=== PATIENT | female | born 1970 | race Two or more races ===

== ENCOUNTER 2020-03-31 17:04 | Emergency (ER) | payer BC, OTHER ==
[~2020-03-31] VITALS: Ht 152.4 cm; Wt 61.2 kg
--- NOTE | 2020-03-31 17:26 | NUR ---
Patient discharged to home in stable condition. Written and verbal after care instructions given. Patient verbalizes understanding of instructions. Stressed follow up or return to ER for worsening s/s.
== END 2020-03-31 17:27 | disposition home or self-care (01) ==
LOC: ER 17:07
DX: S62.521A Displaced fracture of distal phalanx of right thumb, initial encounter for closed fracture (principal); W22.8XXA Striking against or struck by other objects, initial encounter; Y93.89 Activity, other specified; Y92.019 Unspecified place in single-family (private) house as the place of occurrence of the external cause
CPT/HCPCS: 73130; A4663

== ENCOUNTER 2021-01-02 17:38 | Emergency (ER) | payer BC, OTHER ==
[~2021-01-02] VITALS: Ht 152.4 cm; Wt 68.0 kg
[2021-01-02 18:35] VITALS: BP 119/75
--- NOTE | 2021-01-02 18:35 | NUR ---
Patient discharged to home in stable condition. Written and verbal after care instructions given. Patient verbalizes understanding of instructions. Stressed follow up or return to ER for worsening s/s. Pt walks with steady gait.
== END 2021-01-02 18:37 | disposition home or self-care (01) ==
LOC: ER 17:38
DX: M25.562 Pain in left knee (principal); M17.12 Unilateral primary osteoarthritis, left knee; M71.22 Synovial cyst of popliteal space [Baker], left knee; M25.462 Effusion, left knee
CPT/HCPCS: 73700; A4663

== ENCOUNTER 2021-03-03 18:31 | Emergency (ER) | payer BC, OTHER ==
[~2021-03-03] VITALS: Ht 152.4 cm; Wt 65.8 kg
--- NOTE | 2021-03-03 19:28 | NUR ---
XRAY AT BEDSIDE.
--- NOTE | 2021-03-03 19:52 | NUR ---
Patient discharged to home in stable condition. A/O x4, no changes in LOC. Denies any pain/discomfort upon discharge. Written and verbal after care instructions given. Patient verbalizes understanding of instructions. Stressed follow up or return to ER for worsening s/s. Steady gait.
[2021-03-03 19:54] VITALS: BP 129/80
== END 2021-03-03 19:50 | disposition home or self-care (01) ==
LOC: ER 18:32
DX: S90.31XA Contusion of right foot, initial encounter (principal); S90.121A Contusion of right lesser toe(s) without damage to nail, initial encounter; W20.8XXA Other cause of strike by thrown, projected or falling object, initial encounter; Y92.89 Other specified places as the place of occurrence of the external cause
CPT/HCPCS: 73630; A4663

== ENCOUNTER 2021-09-11 08:05 | Outpatient (CLI) | payer BC, OTHER ==
[2021-09-11 08:42] LABS: HEMATOCRIT 39.1 % (31.2-41.9); MEAN CORPUSCULAR HEMOGLOBIN 31.1 uug (24.7-32.8); MEAN CORPUSCULAR VOLUME 90.7 fL (75.5-95.3); PLATELET COUNT (AUTO) 242 K/uL (179-408)
[2021-09-11 08:54] LABS: *BILIRUBIN,URIN NEGATIVE (NEGATIVE); *BLOOD, URINE NEGATIVE (NEGATIVE); *CLARITY,URINE CLEAR (CLEAR); *COLOR,URINE LIGHT YELLOW (YELLOW); *KETONES,URINE NEGATIVE (NEGATIVE); *UROBILINOGEN,URINE 0.2 E.U./dl (NORMAL); LEUKOCYTE ESTERASE ,URINE NEGATIVE (NEGATIVE); NITRITE, URINE NEGATIVE (NEGATIVE); UGLUCOSE NEGATIVE (NEGATIVE)
[2021-09-11 09:13] LABS: IRON, SERUM 65 ug/dL (50-175)
[2021-09-11 09:38] LABS: ALANINE AMINOTRANSFERASE 35 U/L (14-59); ALKALINE PHOSPHATASE 89 U/L (50-136); ASPARTATE AMINOTRANSFERASE 22 U/L (15-37); BILIRUBIN,TOTAL 0.3 mg/dL (0.2-1.0); CARBON DIOXIDE 29 mmol/L (21-32); CHLORIDE 103 mmol/L (98-107); CHOLESTEROL 223 mg/dL (<200); CREATININE 0.7 mg/dL (0.6-1.3); GLUCOSE 91 mg/dL (74-106); HDL CHOLESTEROL 82 mg/dL (40-60); POTASSIUM 3.7 mmol/L (3.5-5.1); TOTAL PROTEIN, SERUM 8.6 g/dL (6.4-8.2); TRIGLYCERIDES 51 MG/DL (30-150); UREA NITROGEN, BLOOD 14 mg/dL (7-18); URIC ACID 4.7 mg/dL (2.6-6.0)
[2021-09-12 05:07] LABS: *TESTOSTERONE, SERUM 19 ng/dL (4-50); ESTRADIOL <5.0 pg/mL (.); FOLLICLE STIMULATION HORMONE 86.9 mIU/mL (.); LUTEINIZING HORMONE 46.9 mIU/mL (.); PROLACTIN 16.5 ng/mL (4.8-23.3)
[2021-09-14 09:06] LABS: *SJOGREN'S ANTI-SS-A <0.2 AI (0.0-0.9); *SJOGREN'S ANTI-SS-B <0.2 AI (0.0-0.9); *SMITH ANTIBODIES <0.2 AI (0.0-0.9); ANTI-DNA(DS) AB, QN <1 IU/mL (0-9)
== END 2021-09-11 23:59 | disposition home or self-care (01) ==
LOC: LAB 08:05
PROVIDERS: ATTEND Legal Medicine
DX: E11.22 Type 2 diabetes mellitus with diabetic chronic kidney disease (principal); N18.9 Chronic kidney disease, unspecified; E78.5 Hyperlipidemia, unspecified; E03.9 Hypothyroidism, unspecified; D64.9 Anemia, unspecified; E55.9 Vitamin D deficiency, unspecified; R53.1 Weakness; Z00.00 Encounter for general adult medical examination without abnormal findings
CPT/HCPCS: 36415; 82306; 82670; 82746; 83001; 83002; 83550; 84146; 84403; 84443; 84550; 85025; 85651; 86038; 86140

== ENCOUNTER 2021-10-29 17:52 | Emergency (ER) | payer BC, OTHER ==
[~2021-10-29] VITALS: Ht 152.4 cm; Wt 65.8 kg
--- NOTE | 2021-10-29 18:00 | NUR ---
Patient ambulatory, alert and orientedx4 complaints of right neck,shoulder pain radiating to right arm. Denies nausea/vomiting,SOB,chest pain. Vitals stable.
--- NOTE | 2021-10-29 18:05 | NUR ---
MD at bedside, medical screening exam in progress.
[2021-10-29] MEDS ORDERED: ONDA4TAB5 PO (19:12)
[2021-10-29] MEDS ORDERED: HYDR-4209 PO (19:12)
[2021-10-29 19:22] VITALS: BP 110/78
== END 2021-10-29 19:23 | disposition home or self-care (01) ==
LOC: ER 17:56
DX: M54.12 Radiculopathy, cervical region (principal)
CPT/HCPCS: 72125; A4663

== ENCOUNTER 2022-04-01 16:58 | Emergency (ER) | payer BC, OTHER ==
[~2022-04-01] VITALS: Ht 152.4 cm; Wt 61.7 kg
[~2022-04-01 16:58] MED LIST: HYDR-4209 PO; ONDA4TAB5 PO
--- NOTE | 2022-04-01 17:14 | NUR ---
Dr Squires at the bedside for MSE.
[2022-04-01] MEDS ORDERED: ALBU18HF2 INH (17:40)
[2022-04-01] MEDS ORDERED: GUAI-671 PO (17:40)
[2022-04-01] MEDS ORDERED: PRED20TA PO (17:40)
[2022-04-01 17:56] VITALS: BP 131/84
== END 2022-04-01 17:57 | disposition home or self-care (01) ==
LOC: ER 16:58
DX: J20.9 Acute bronchitis, unspecified (principal); Z20.822 Contact with and (suspected) exposure to COVID-19; R03.0 Elevated blood-pressure reading, without diagnosis of hypertension
CPT/HCPCS: 71045; A4663